=== PATIENT | female | born 1990 | race Caucasian/White ===

== ENCOUNTER 2018-03-20 17:35 | Emergency (ER) | payer OTHER ==
[~2018-03-20] VITALS: Ht 162.6 cm; Wt 68.2 kg
[2018-03-20 18:31] LABS: APPEARANCE,URINE CLOUDY (CLEAR); BILIRUBIN,URINE NEGATIVE (NEGATIVE); GLUCOSE, URINE (UA) NEGATIVE (NEGATIVE); KETONES,URINE NEGATIVE (NEGATIVE); LEUKOCYTE ESTERASE ,URINE LARGE (NEGATIVE); NITRATE,URINE NEGATIVE (NEGATIVE); OCCULT BLOOD,URINE LARGE (NEGATIVE); PH,URINE 5.5 (5.0-8.0); PROTEIN,URINE SEE CONFIRM (NEGATIVE); UROBILINOGEN,URINE 0.2 mg/dL (<=1.0)
[2018-03-20 18:52] LABS: SULFOSALICYLIC ACID,URINE 4+ (Negative)
[2018-03-20 18:54] LABS: RBC,URINE 26-50 /HPF (0-2); WBC,URINE >100 /HPF (0-5)
[2018-03-20 18:55] LABS: BACTERIA,URINE Moderate /HPF (None Seen); SQUAMOUS EPITHELIAL CELL,UR Few /LPF (None Seen)
[2018-03-20] MEDS ORDERED: SULFAMETHOX/TRIMETH DS 800-160 MG/TABLET PO ONE (20:15)
[2018-03-20] MEDS ORDERED: KETOROLAC TROMETHAMINE 30 MG/ML VIAL IM ONE (20:30)
[2018-03-20 20:41] VITALS: BP 121/73
== END 2018-03-20 20:41 | disposition home or self-care (01) ==
LOC: EMS 17:37
DX: N39.0 Urinary tract infection, site not specified (principal)
CPT/HCPCS: 76770; 81001; 81002; 87086; 96372; 99285; J1885